=== PATIENT | female | born 1960 | race Caucasian/White ===

== ENCOUNTER 2017-12-06 07:22 | Inpatient (IN) | payer BC, OTHER ==
[~2017-12-06] VITALS: Ht 162.6 cm; Wt 66.2 kg
[2017-12-06 07:52] LABS: BASOPHILS 1.6 % (0.0-2.0); EOSINOPHILS 0.6 % (0.0-3.0); HEMOGLOBIN 11.7 gm/dL (12.0-15.0); LYMPHOCYTES 14.3 % (24.0-44.0); MCH 30.5 pg (26.0-34.0); MCHC 34.3 g/dL (28.0-37.0); MCV 88.8 fL (80.0-100.0); MONOCYTES 2.7 % (1.0-8.0); PLATELET COUNT 278 thou/uL (150-400); POLYS 80.8 % (36.0-66.0); RBC 3.83 mil/uL (4.20-5.00); RDW 13.7 % (10.5-14.5); WBC 4.9 thou/uL (4.0-11.0)
[2017-12-06 08:01] LABS: ANION GAP 8 mmol/L (7-16); BUN 12 mg/dL (7-18); CALCIUM 9.2 mg/dL (8.5-10.1); CHLORIDE 104 mmol/L (98-107); CO2 26 mmol/L (21-32); CREATININE 0.7 mg/dL (0.6-1.0); GLUCOSE 101 mg/dL (74-106); POTASSIUM 3.5 mmol/L (3.5-5.1); SODIUM 138 mmol/L (136-145)
[2017-12-06 08:07] LABS: ALBUMIN 3.4 g/dL (3.4-5.0); DIRECT BILIRUBIN < 0.1 mg/dL (<0.1-0.3); SGOT 29 U/L (15-37); SGPT 27 U/L (30-65); TOTAL BILIRUBIN 0.3 mg/dL (<0.1-1.0); TOTAL PROTEIN 8.7 g/dL (6.4-8.2)
[2017-12-06] MEDS ORDERED: TRAMADOL 50 MG50 MG PO (09:11)
[2017-12-06 09:32] VITALS: BP 147/70
[2017-12-06] MEDS ORDERED: IBUPROFEN 600600 M1 PO (10:18)
[2017-12-06 12:30] VITALS: BP 137/83
[2017-12-06 15:40] VITALS: BP 129/85
[2017-12-06 20:00] VITALS: BP 118/74
[2017-12-07 04:00] VITALS: BP 133/69
[2017-12-07 08:05] VITALS: BP 110/60
[2017-12-07] MEDS ORDERED: TIZANIDINE4 MG/1 TA1 PO (08:05)
[2017-12-07] MEDS ORDERED: OXYCODONE-APAP1 EAC6 PO (08:05)
[2017-12-07] MEDS ORDERED: PREDNISONE 20 M20 M1 PO (10:11)
[2017-12-07 12:19] VITALS: BP 110/60
== END 2017-12-07 12:59 | disposition home or self-care (01) | DRG 547 ==
LOC: ER 07:22 → EROBS 08:55 → 4N 08:55 → ENTRNSPT 12-07 12:58 → 4N 12-07 12:59
PROVIDERS: Emergency Medicine
DX: M32.9 Systemic lupus erythematosus, unspecified (principal); G47.00 Insomnia, unspecified; R53.81 Other malaise; Z79.1 Long term (current) use of non-steroidal anti-inflammatories (NSAID); Z88.8 Allergy status to other drugs, medicaments and biological substances
CPT/HCPCS: 10091